=== PATIENT | female | born 1960 | race African-American/Black ===

== ENCOUNTER 2019-12-25 12:01 | Outpatient (REF) | payer OTHER, SELFPAY | END 2019-12-25 12:02 | disposition home or self-care (01) | LOC: HO.HMGCLDS 12:01 | PROVIDERS: Visit Provider Internal Medicine | DX: Z20.828 Contact with and (suspected) exposure to other viral communicable diseases (principal) | CPT/HCPCS: 87635 ==

== ENCOUNTER 2020-02-19 14:25 | Outpatient (REF) | payer OTHER, SELFPAY | END 2020-02-19 14:26 | disposition home or self-care (01) | LOC: HO.LAB 14:25 | PROVIDERS: Visit Provider Internal Medicine | DX: Z20.828 Contact with and (suspected) exposure to other viral communicable diseases (principal) | CPT/HCPCS: C9803; U0003 ==

== ENCOUNTER 2020-04-09 13:44 | Outpatient (REF) | payer MEDICAID, SELFPAY | END 2020-04-09 13:45 | disposition home or self-care (01) | LOC: HO.LAB 13:44 | PROVIDERS: Visit Provider Internal Medicine | DX: Z20.822 Contact with and (suspected) exposure to COVID-19 (principal) | CPT/HCPCS: 36415; C9803; U0003 ==

== ENCOUNTER 2021-10-05 12:28 | Inpatient (IN) | payer OTHER, MEDICAID, SELFPAY ==
--- NOTE | ~2021-10-05 | MR_ITS ---
MRI OF THE BRAIN WITHOUT IV CONTRAST INDICATION: History of TBI. Recent fall. Alcohol. COMPARISON: Head CT 10/08/2021. TECHNIQUE: Multiplanar multisequence MR imaging of the brain was obtained without IV contrast. FINDINGS: There is no hydrocephalus, extra-axial surface collection, or herniation. There is global cerebral volume loss and there is mild chronic microangiopathy. Chronic lacunar infarct within the right frontal centrum semiovale. The major flow voids at the skull base are preserved. There is no acute infarct on diffusion-weighted imaging. Punctate focus of chronic hemosiderin staining within the ventral right thalamus. The midline structures are normal. The cerebellar tonsils are normally positioned. The cerebellum and brainstem are normal. The craniocervical junction is normal. Osseous marrow signal intensity is homogenous. The visualized soft tissues are unremarkable. MR/MR head/brain wo con IMPRESSION: - No acute intracranial findings. No acute infarcts and no MRI evidence of acute intracranial hemorrhage. - There is global cerebral volume loss and there is mild chronic microangiopathy. Chronic lacunar infarct within the right frontal centrum semiovale. - Punctate focus of chronic hemosiderin staining within the ventral right thalamus.
--- NOTE | ~2021-10-05 | CT_ITS ---
EXAMINATION: CT HEAD WITHOUT CONTRAST CLINICAL INFORMATION: Memory loss. Alcohol abuse COMPARISON: None TECHNIQUE: Contiguous axial imaging was performed from the skull base to vertex without intravenous administration of contrast. This CT examination was performed using dose optimization techniques as appropriate, variously including the following: *Automated exposure control *Adjustment of mA and/or kV according to patient size (this includes techniques or standardized protocols for targeted exams where dose is matched to indication/reason for exam; i.e. extremities or head) *Use of iterative reconstruction technique DLP: 559 mGy-cm FINDINGS: There is no evidence of acute intracranial hemorrhage or territorial infarction. No abnormal mass effect or midline shift is seen. Marie to white matter differentiation is well preserved. No extra-axial fluid collections are identified. The lateral ventricles are symmetrical in size and configuration but enlarged. There is diffuse periventricular hypodensity without mass effect. The osseous structures and soft tissues are normal. The mastoid air cells and visualized portions of the paranasal sinuses are well aerated. CT/CT head/brain wo con IMPRESSION: No acute intracranial process seen.
--- NOTE | 2021-10-05 12:49 | PC.NURSE ---
Del CALLS TO SAY THIS PT HAS BEEN SEEN IN THE COMMUNITY, BED SEARCH IN PROGRESS
[2021-10-05 12:50] VITALS: BP 190/110; PULSE 92; O2SAT 100
[2021-10-05 13:41] VITALS: BP 135/79; PULSE 96; RESP 18; TEMP 36.6; O2SAT 98; BMI 24.0
--- NOTE | 2021-10-05 14:17 | ED_ITS ---
HPI - Psych General Chief Complaint: Psychiatric Symptoms Stated Complaint: SEC 12,SI/HI THREATS,ETOH INTOX PER EMS Time Seen by Provider: 10/05/21 13:10 Source: patient Mode of arrival: EMS Limitations: no limitations History of Present Illness HPI Narrative: Patient presents emergency department via EMS on a Section 12 from [facility] in the community. There was concern for suicidal ideations and homicidal ideations, and patient with access to guns/weapons, per family she is not at her baseline. Upon speaking with patient she states that she is ?fed up?. She reports that her significant other is using drugs, and he recently went to rehab, returned home about 2 weeks ago and said that he no longer wished to be with her after 5 years of their relationship. She states on multiple accounts ?I could kill him?. But relates no specific plan towards this. When asked whether she is having suicidal ideations she declines, stating that she has a grandchild who is due to be born in a few weeks. She does endorse that she has been drinking approximately 1 bottle of wine daily for the past 2 weeks. She denies any history of alcohol dependence, or withdrawal symptoms. She does report a history of seizures but not secondary to alcohol withdrawal. She denies fevers, chills, upper respiratory symptoms, dizziness, lightheadedness, chest pain, palpitations, shortness of breath, difficulty breathing, nausea, vomiting, abdominal pain, dysuria, generalized weakness, numbness or tingling of the extremities. Related Data Allergies Allergy/AdvReac Type Severity Reaction Status Date / Time lisinopril [LISINOPRIL] Allergy Severe ANGIOEDEMA, Unverified 12/06/19 18:35 cough Review of Systems Review of Systems: Constitutional : No Fever, No Chills ENT/Mouth : No Ear Pain, No Nasal Congestion, No sore throat Eyes: No Eye Pain, No Swelling, No Redness Cardiovascular : No Chest Pain, No SOB Respiratory : No Cough, No Sputum, No Dyspnea Gastrointestinal : No Nausea, No Vomiting, No Diarrhea, No Hematochezia, No Melena Genitourinary : No Dysuria, No Urinary Frequency, No Hematuria Musculoskeletal : No Myalgias Skin : No Skin Lesions, No rash Neuro : No Weakness, No Numbness, No Paresthesias, No Dizziness, No Headache Psych : positive Anxiety, positive Depression, positive SI/HI Heme/Lymph: No Lymphadenopathy Endocrine : No Polyuria, No Polydipsia Yes all other systems are reviewed and are negative [facility] Past Medical History Attestation statement: The following information was validated with the patient. Social History Social History Advance Directives: Yes Advance Directives Information Provided: Yes Advance Directives on File: No Physical Exam Vital Signs: Vital Signs: Last Vital Signs Temp 97.8 F 10/05/21 13:41 Pulse 96 10/05/21 13:41 Resp 18 10/05/21 13:41 BP 135/79 10/05/21 13:41 Pulse Ox 98 10/05/21 13:41 O2 Del Method 10/05/21 13:41 BMI result Body Mass Index 24.0 Vital signs have been reviewed as normal and appeared to be correct. Blood pressure normal.? Heart rate normal.? Respiration rate normal. Temperature normal.? Oxygen saturation normal. Appearance: Alert.?Oriented to person, place and time. No acute distress.?Normal affect. Eyes: Pupils equal, round and reactive to light.? ENT: Pharynx normal.?? Neck: Normal inspection.? Neck supple.?? CVS: Heart sounds normal. Normal heart rate and rhythm.? Pulses normal.?? Respiratory: No respiratory distress.? Lung sounds clear to auscultation bilaterally?? Abdomen: Soft and non-tender. Normoactive bowel sounds. Skin: Skin warm and dry.? Normal skin color.??? Extremities: No lower extremity edema.? Neuro: Moves all extremities spontaneously. Sensation intact bilaterally. CN II- XII intact. No focal neuro deficits. Ambulates with normal steady gait. Course Course Course Narrative: Patient is a 60-year-old female with a past medical history of seizures, hypertension presented to Emergency Department on a Section 12 from [facility] in [facility] for SI/HI with access to weapons. Will obtain basic labs including CBC, CMP in addition to urinalysis, ethanol level, ALEJANDRO for clearance. No physical complaints at this time. Will continue to monitor. Reevaluation(s) Reevaluation #1: Patient placed in physician observation as she will require additional time to be re-evaluated by the [facility], for disposition/bed search. Patient currently stable. Unremarkable labs. Will continue to monitor. Time: 16:00 [facility] - Psych Medical Records Attestation: I reviewed the patient's medical records. Lab Data Attestation: I reviewed the patient's lab results. Result diagrams: 10/05/21 14:24 10/05/21 14:23 Labs: Lab Results 10/05/21 10/05/21 10/05/21 Range/Units 14:23 14:23 14:24 WBC 5.7 (4.8-10.8) X10*3/uL RBC 3.86 L (4.20-5.50) X10*6/uL Hgb 13.8 (12.0-16.0) g/dl Hct 40.0 (37.0-47.0) % MCV 103.6 H (80.0-98.0) fL MCH 35.8 H (27.0-33.0) pg MCHC 34.5 (31.0-35.0) g/dl RDW 12.5 (11.0-16.0) % Plt Count 205 (160-400) X10*3/uL MPV 9.4 (9.4-12.3) fL Immature Gran % (Auto) 0.3 (0.0-0.4) % Neut % (Auto) 41.1 L (45-73) % Lymph % (Auto) 50.6 H (20-40) % Ida % (Auto) 7.2 (2-11) % Eos % (Auto) 0.5 (0-4) % Baso % (Auto) 0.3 (0-2) % Lymph # (Auto) 2.9 (1.2-4.9) X10*3/uL Ida # (Auto) 0.4 (0.1-1.2) X10*3/uL Eos # (Auto) 0.0 (0.0-0.4) X10*3/uL Baso # (Auto) 0.0 (0.0-0.2) X10*3/uL Abs Immat Gran (auto) 0.02 (0.00-0.03) X10*3/uL Absolute Neuts (auto) 2.4 (2.0-8.3) x10*3/uL Absolute Nucleated RBC 0.000 (0.0-0.012) X10*3/uL Nucleated RBC % (auto) 0.0 (0.0-0.2) /100WBC Sodium 147 H (135-145) mmol/L Potassium 3.9 (3.3-5.1) mmol/L Chloride 112 H (96-108) mmol/L Carbon Dioxide 22 (22-29) mmol/L Anion Gap 17 (12-20) BUN 8 L (9-16) mg/dL Creatinine 0.74 (0.5-1.4) mg/dL Estim Creat Clear Calc 70.6 Estimated GFR > 60 Random Glucose 82 (60-115) mg/dL Calcium 8.5 (8.4-10.2) mg/dL Magnesium 2.4 (1.6-2.6) mg/dL Total Bilirubin 0.2 (0.0-1.0) mg/dL AST 51 H (5-31) U/L ALT 25 (0-31) U/L Alkaline Phosphatase 112 (39-117) U/L Total Protein 7.8 (6.5-8.0) g/dL Albumin 4.4 (3.5-5.0) g/dL Ethyl Alcohol 279 mg/dL COVID-19 (ANGELINA) Negative (Negative) COVID-19 Clin Com See Note Discharge Plan Discharge Clinical Impression: Homicidal ideations Patient Disposition: Still a Patient
[2021-10-05 14:29] LABS: MANUAL DIFF FLAG NO
[2021-10-05 14:42] LABS: Basophils Percent Auto 0.3 % (0-2); Eosinophils Percent Auto 0.5 % (0-4); Hemoglobin 13.8 g/dl (12.0-16.0); Imm Gran Abs Auto 0.02 X10*3/uL (0.00-0.03); Imm Gran Pct Auto 0.3 % (0.0-0.4); Lymphocytes Absolute Auto 2.9 X10*3/uL (1.2-4.9); Lymphocytes Percent Auto 50.6 % (20-40); Mean Corpuscular HGB Conc 34.5 g/dl (31.0-35.0); Mean Corpuscular Hemoglobin 35.8 pg (27.0-33.0); Mean Corpuscular Volume 103.6 fL (80.0-98.0); Mean Platelet Volume 9.4 fL (9.4-12.3); Monocytes Absolute Auto 0.4 X10*3/uL (0.1-1.2); Monocytes Percent Auto 7.2 % (2-11); Neutrophils Absolute Auto 2.4 x10*3/uL (2.0-8.3); Neutrophils Percent Auto 41.1 % (45-73); Platelet Count 205 X10*3/uL (160-400); Red Blood Count 3.86 X10*6/uL (4.20-5.50); Red Cell Distribution Width 12.5 % (11.0-16.0); White Blood Count 5.7 X10*3/uL (4.8-10.8)
[2021-10-05 14:47] LABS: COVID-19 Test Negative (Negative)
[2021-10-05 14:49] LABS: Alanine Aminotransferase 25 U/L (0-31); Albumin Level 4.4 g/dL (3.5-5.0); Alkaline Phosphatase 112 U/L (39-117); Anion Gap 17 (12-20); Aspartate Amino Transferase 51 U/L (5-31); Bilirubin Total 0.2 mg/dL (0.0-1.0); Blood Urea Nitrogen 8 mg/dL (9-16); Calcium 8.5 mg/dL (8.4-10.2); Carbon Dioxide 22 mmol/L (22-29); Chloride 112 mmol/L (96-108); Creatinine Clr Calc Pharmacy 70.6; Estimated Glomerular Filt Rate > 60; Ethanol 279 mg/dL; Glucose Random 82 mg/dL (60-115); Magnesium 2.4 mg/dL (1.6-2.6); Potassium 3.9 mmol/L (3.3-5.1); Sodium 147 mmol/L (135-145); Total Protein 7.8 g/dL (6.5-8.0)
[2021-10-05 18:04] LABS: Appearance Urine CLEAR; Color Urine YELLOW; Glucose Urine UA NEG (NEG); Leukocyte Esterase Urine NEG (NEG); Nitrite Urine NEG (NEG); Specific Gravity - Urine 1.025 (1.005-1.025); Urine Blood NEG (NEG); Urine Ketones NEG (NEG); Urine Protein NEG (NEG-TRACE)
[2021-10-05 18:05] LABS: Amphetamine Screen Urine Not Detected (Not Detect); Barbiturates, Urine Not Detected (Not Detect); Benzodiazepines Screen Urine Not Detected (Not Detect); Cannabinoid Screen Urine POSITIVE (Not Detect); Cocaine Screen Urine Not Detected (Not Detect); Fentanyl, urine Not Detected (Not Detect); Opiate Screen Urine Not Detected (Not Detect); Phencyclidine Screen Urine Not Detected (Not Detect)
--- NOTE | 2021-10-05 19:12 | PHA.MEDREC ---
MED REC COMPLETE, NO ISSUES Pharmacy Consult ? Medication Reconciliation Pharmacy has completed the medication reconciliation.
[2021-10-05] MEDS: carvediloL 25 MG TABLET PO (22:45)
[2021-10-05] MEDS: Phenytoin Sodium Extended 100 MG CAPSULE PO (22:45)
--- NOTE | 2021-10-06 | ECG_ITS ---
Test Reason : MED CLEARENCE Blood Pressure : / mmHG Vent. Rate : 088 BPM Atrial Rate : 088 BPM P-R Int : 180 ms QRS Dur : 076 ms QT Int : 378 ms P-R-T Axes : 062 039 061 degrees QTc Int : 457 ms Normal sinus rhythm Normal ECG No previous ECGs available Referred By: Yon Abdul Electronically Signed By:Bharath Hirsch
[2021-10-06 02:26] VITALS: BP 156/67; PULSE 80; RESP 16; TEMP 36.4; O2SAT 98
[2021-10-06] MEDS: LORazepam 1 MG TABLET 2 MG PO ×2 (05:45→23:09)
--- NOTE | 2021-10-06 05:57 | PC.NURSE ---
CIWA 8 @ 0540, prn Ativan 2 mg PO at 0545, patient slept through the night, no distress observed/reported, disposition per [facility] is section 12 inpatient bed search, behavior non concerning, VSS, medication compliant, will continue to monitor.
--- NOTE | 2021-10-06 07:15 | PC.NURSE ---
patient appears to remain asleep at present respirations are even and unlabored patient appears in no distress
[2021-10-06 07:46] VITALS: BP 182/103; PULSE 83; RESP 16; TEMP 36.3; O2SAT 97
[2021-10-06] MEDS: dilTIAZem HCL CD 240 MG CAP.ER.DEG PO (08:26)
[2021-10-06] MEDS: Megestrol Acetate 400 MG/10 ML ORAL.SUSP 625 MG PO (08:26)
[2021-10-06] MEDS: Phenytoin Sodium Extended 100 MG CAPSULE PO (08:27)
[2021-10-06] MEDS: Losartan Potassium 50 MG TABLET 100 MG PO (08:27)
[2021-10-06] MEDS: hydroCHLOROthiazide 12.5 MG TABLET PO (08:27)
[2021-10-06] MEDS: Multivitamin TABLET 1 TAB PO (08:28)
[2021-10-06] MEDS: Cyanocobalamin (Vitamin B-12) 1,000 MCG TABLET 1000 MCG PO (08:28)
[2021-10-06] MEDS: carvediloL 25 MG TABLET PO ×2 (08:28→23:09)
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
[2021-10-06 15:33] VITALS: BP 176/89; PULSE 76; RESP 18; O2SAT 98
[2021-10-06] MEDS: Phenytoin Sodium Extended 100 MG CAPSULE 200 MG PO (23:09)
[2021-10-07 06:00] VITALS: BP 135/92; PULSE 114; TEMP 36.3; O2SAT 97
[2021-10-07 09:27] LABS: Estimated Average Glucose 97 mg/dL
[2021-10-07] MEDS: carvediloL 25 MG TABLET PO ×2 (09:27→20:39)
[2021-10-07] MEDS: Cyanocobalamin (Vitamin B-12) 1,000 MCG TABLET 1000 MCG PO (09:28)
[2021-10-07] MEDS: Phenytoin Sodium Extended 100 MG CAPSULE PO (09:28)
[2021-10-07] MEDS: dilTIAZem HCL CD 240 MG CAP.ER.DEG PO (09:28)
[2021-10-07] MEDS: Losartan Potassium 50 MG TABLET 100 MG PO (09:28)
[2021-10-07] MEDS: hydroCHLOROthiazide 12.5 MG TABLET PO (09:28)
[2021-10-07] MEDS: Multivitamin TABLET 1 TAB PO (09:29)
[2021-10-07] MEDS: Megestrol Acetate 400 MG/10 ML ORAL.SUSP 625 MG PO (09:29)
[2021-10-07 09:46] LABS: Cholesterol 231 mg/dL; HDL Cholesterol 69 mg/dL; LDL Cholesterol Calculated 118 mg/dl; Magnesium 2.2 mg/dL (1.6-2.6); Triglycerides 220 mg/dL
[2021-10-07] MEDS: Acetaminophen 325 MG TABLET 650 MG PO (10:07)
[2021-10-07 10:10] LABS: Free T4 (Free Thyroxine) 1.54 ng/dL (0.71-1.85); Thyroid Stimulating Hormone 0.65 uIU/mL (0.32-4.0)
[2021-10-07 10:40] LABS: Folate > 20.0 ng/mL (> or = 4.0); Vitamin B12 1150 pg/mL (200-900)
--- NOTE | 2021-10-07 11:58 | PC.NURSE ---
Pt signed a 3 day up on Tuesday, 10/12. , SW, UR aware.
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
[2021-10-07 19:05] VITALS: BP 122/74; PULSE 102; TEMP 36.3; O2SAT 100
[2021-10-07 20:38] VITALS: BP 128/86; PULSE 96
[2021-10-07] MEDS: Phenytoin Sodium Extended 100 MG CAPSULE 200 MG PO (20:39)
[2021-10-07] MEDS: traZODone HCL 50 MG TABLET PO (20:42)
[2021-10-08 07:00] VITALS: BMI 25.0
[2021-10-08 08:45] VITALS: BP 122/77; PULSE 112; TEMP 37.2
[2021-10-08 08:52] LABS: INTERNATIONAL NORM RATIO 1.1 (0.9-1.1); Prothrombin Time 12.1 SEC (10.0-13.1)
[2021-10-08 08:54] LABS: Ammonia 28 umol/L (13-55)
[2021-10-08 09:00] LABS: Phosphorus 3.6 mg/dL (2.7-4.5)
[2021-10-08] MEDS: Megestrol Acetate 400 MG/10 ML ORAL.SUSP 625 MG PO (09:02)
[2021-10-08] MEDS: hydroCHLOROthiazide 12.5 MG TABLET PO (09:03)
[2021-10-08] MEDS: Losartan Potassium 50 MG TABLET 100 MG PO (09:03)
[2021-10-08] MEDS: carvediloL 25 MG TABLET PO ×2 (09:03→21:57)
[2021-10-08] MEDS: Phenytoin Sodium Extended 100 MG CAPSULE PO (09:03)
[2021-10-08] MEDS: dilTIAZem HCL CD 240 MG CAP.ER.DEG PO (09:03)
[2021-10-08] MEDS: Multivitamin TABLET 1 TAB PO ×2 (09:04→09:10)
[2021-10-08] MEDS: Cyanocobalamin (Vitamin B-12) 1,000 MCG TABLET 1000 MCG PO (09:04)
[2021-10-08 09:05] LABS: Gamma Glutamyl Transpeptidase 251 U/L (7-33); Iron 113 mcg/dL (30-160); Percent Iron Saturation 31 % (15-50); Total Iron Binding Capacity 366 mcg/dL (228-428); Unsaturated Iron Binding 253 ug/dL
--- NOTE | 2021-10-08 09:18 | P.PNPSI_ITS ---
Subjective Subjective Date of Service: 10/08/21 Reason For Visit: SEC 12,SI/HI THREATS,ETOH INTOX PER EMS Subjective Notes: Conditional Voluntary and 3 Day Healthcare Proxy: No Guardianship: No Medical Problems Affecting Mental Status: No Interim History: Asking for discharge, I have learned my lesson. Family meeting with daughter and Adalberto Barlow TEAM COORDINATOR Pt open to continuing OP treatment (PHP/IOP) along with individual therapy, declines medications. Back surgery scheduled for Nov 2021. Discussed needing to find more opportunities for her to be involved in her community as this is a h ealing and motivating factor for her. States this experience was traumatic for her-identifies the POD in the ER as being like senior living , having no locks on the bathroom doors, having people behaving differently. 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 Looking forward to her daughter coming from [place] this week and attending her weekly [place] to promote the [employer] business. I have been scared straight . Review of diagnostic results which were available, plans for MRI 10/10 s/p fall. Medication Compliance: Yes Side effects from medications: No Attending Groups: Yes Review of Systems Acute medical concerns: No Medical Review of Systems: unchanged Review of Systems Psychiatric: Reports no additional psychiatric complaints Mental Status Exam Mental Status Exam Patient Appearance: Appropriate Patient Orientation: Person, Place, Time and Situation Level of Consciousness: Restless and Alert Patient Behavior: Appropriate, Talkative, Cooperative, Restless, Anxious and Good Eye Contact Mood Description: Anxious and Apprehensive Affect Description: Constricted Patient Cognition Impaired: No Ability to Follow Directions: Good Speech Pattern: Spontaneous Speech Memory Description: Remote Impaired and Episodic Impaired Hallucinations: None Delusions: Not Present Thought Process: Distracted and Goal Oriented Thought Content: positive for Circumstantial, positive for Logical, positive for Suicidal Ideation (denies) and positive for Homicidal Ideation (denies) Depressive Symptoms: Increased Anxiety and Changes in Appetite Abnormal Motor Activity Signs and Symptoms: Restlessness Judgement: Fair Diagnostics Vital Signs (24Hr): Vital Signs - 24 hr 10/07/21 19:05 10/07/21 20:38 Temperature 97.4 F Pulse Rate 102 H 96 Blood Pressure 122/74 128/86 Pulse Oximetry 100 Oxygen Delivery Method Room Air BMI result Body Mass Index 24.0 Labs Results: 10/05/21 14:24 10/05/21 14:23 Labs: Laboratory Results - last 48 hr 10/07/21 10/07/21 10/07/21 07:59 07:59 07:59 PT INR Estimat Average Glucose 97 Hemoglobin A1c % 5.0 Phosphorus Magnesium 2.2 Iron TIBC % Saturation Unsat Iron Binding GGT Ammonia Triglycerides 220 Cholesterol 231 LDL Cholesterol, Calc 118 HDL Cholesterol 69 Vitamin B12 1150 H Folate > 20.0 TSH 0.65 Free T4 1.54 10/08/21 10/08/21 10/08/21 08:26 08:26 08:26 PT 12.1 INR 1.1 Estimat Average Glucose Hemoglobin A1c % Phosphorus 3.6 Magnesium Iron 113 TIBC 366 % Saturation 31 Unsat Iron Binding 253 GGT 251 H Ammonia Triglycerides Cholesterol LDL Cholesterol, Calc HDL Cholesterol Vitamin B12 Folate TSH Free T4 10/08/21 08:26 PT INR Estimat Average Glucose Hemoglobin A1c % Phosphorus Magnesium Iron TIBC % Saturation Unsat Iron Binding GGT Ammonia 28 Triglycerides Cholesterol LDL Cholesterol, Calc HDL Cholesterol Vitamin B12 Folate TSH Free T4 Medications Medications Current Medications Acetaminophen (Acetaminophen 325 Mg Tablet) 650 mg PO Q6H PRN PRN Reason: Headache/Pain Mild Scale (1-3) Last Admin: 10/07/21 10:07 Dose: 650 mg Al Hydroxide/Mg Hydroxide (Magnesium Hydrox/Alum Hydrox 30 Ml Oral.Susp) 30 ml PO Q6H PRN PRN Reason: Heartburn/Nausea Albuterol Sulfate (Albuterol Sulfate 90 Mcg 8 Gm Inhaler) 2 puff INHALE Q6H PRN PRN Reason: Respiratory Distress Carvedilol (Carvedilol 25 Mg Tablet) 25 mg PO BID TEO; Protocol Last Admin: 10/08/21 09:03 Dose: 25 mg Cyanocobalamin (Cyanocobalamin (Vitamin B-12) 1,000 Mcg Tablet) 1,000 mcg PO DAILY TEO Last Admin: 10/08/21 09:04 Dose: 1,000 mcg Diltiazem HCl (Diltiazem Hcl Cd 240 Mg Cap.Er.Deg) 240 mg PO DAILY TEO; Protocol Last Admin: 10/08/21 09:03 Dose: 240 mg Hydrochlorothiazide (Hydrochlorothiazide 12.5 Mg Tablet) 12.5 mg PO DAILY TEO; Protocol Last Admin: 10/08/21 09:03 Dose: 12.5 mg Hydroxyzine HCl (Hydroxyzine Hcl 25 Mg Tablet) 25 mg PO Q6H PRN PRN Reason: Anxiety Lorazepam (Lorazepam 1 Mg Tablet) 2 mg PO RQ4H WHILE AWAKE PRN PRN Reason: Alcohol Withdrawal Last Admin: 10/06/21 23:09 Dose: 2 mg Losartan Potassium (Losartan Potassium 50 Mg Tablet) 100 mg PO DAILY [facility]; Protocol Last Admin: 10/08/21 09:03 Dose: 100 mg Magnesium Hydroxide (Milk Of Magnesia 30 Ml Oral.Susp) 30 ml PO DAILY PRN PRN Reason: Constipation Megestrol Acetate (Megestrol Acetate 400 Mg/10 Ml Oral.Susp) 625 mg PO DAILY [facility] Last Admin: 10/08/21 09:02 Dose: 625 mg Multivitamins/Vitamin C (Multivitamin Tablet) 1 tab PO DAILY [facility] Last Admin: 10/08/21 09:04 Dose: 1 tab Multivitamins/Vitamin C (Multivitamin Tablet) 1 tab PO DAILY [facility] Last Admin: 10/08/21 09:10 Dose: 1 tab Phenytoin Sodium (Phenytoin Sodium Extended 100 Mg Capsule) 100 mg PO DAILY [facility] Last Admin: 10/08/21 09:03 Dose: 100 mg Phenytoin Sodium (Phenytoin Sodium Extended 100 Mg Capsule) 200 mg PO BEDTIME [facility] Last Admin: 10/07/21 20:39 Dose: 200 mg Trazodone HCl (Trazodone Hcl 50 Mg Tablet) 50 mg PO BEDTIME PRN PRN Reason: Insomnia Last Admin: 10/07/21 20:42 Dose: 50 mg Allergies Allergies Allergy/AdvReac Type Severity Reaction Status Date / Time lisinopril [LISINOPRIL] Allergy Severe ANGIOEDEMA, Unverified 12/06/19 18:35 cough Assessment & Plan Assessment & Plan (1) Adjustment disorder with mixed disturbance of emotions and conduct: Status: Acute Code(s): F43.25 - Adjustment disorder with mixed disturbance of emotions and conduct (2) Alcohol use disorder, severe, dependence: Status: Acute Code(s): F10.20 - Alcohol dependence, uncomplicated (3) PTSD (post-traumatic stress disorder): Status: Acute Code(s): F43.10 - Post-traumatic stress disorder, unspecified (4) Homicidal ideations: Status: Acute Code(s): R45.850 - Homicidal ideations Assessment and Plan: Denies any plan or intent to harm ex-partner in any way. Reports this statement was made out of anger and frustration. Plan 60 yo female, seen by [facility], hx alcohol use disorder. Family called crisis/police as pt has been going through an ending of a relationship after 5 years together. Pt learned recently that ex-partner is severely addicted to crack-cocaine. He left rehab in June (early as he was scheduled to leave in September) and returned to using and left their home, telling pt recently she needed to move on with her life. She believes he has entered another relationship as well. As a result she became homicidal, asking for firearms with intent to shoot her ex-partner. She reported drinking more thant usual as well. Today, she met with Adalberto DUENAS and tw. States I just lost it. Reports struggling over the past few weeks after ex told her we are done, move on. Reports a hx of prior marriages- second was addicted to [id number] left him in 2008. Ex had been leaving for a few days at a time and recently had returned home, urine soaked and pt told him he could not remain. Reports an increase in alcohol consumption, [place] and family interviening to assist her in getting help. Pt signed a TDN today, asking about leaving-denies any HI or intent of physical harm to expartner-identifies being in the ER POD like being in senior living and was uncomfortable there-also reports a few cousins are in [facility] in [place] and encouraged her not to harm her partner. 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 Involved significantly with family-expecting a grandson in October 2021, planning back surgery in Nov 2021. I know I can move ahead. Plan: Pt has signed a three day notice. Asks to leave tonight as she is to receive an award. Discussed possibly by 10/09. Ammonia, MRI [facility], GGT, PT/INR, Iron Profile, Phos Continue current medications. Pt is not interested in psychotropic medications. Will give handouts on Naltrexone/Vivitrol for pt review. 10/08/21 Three day notice Discharge 10/09/21 to PHP/IOP I spent minutes with the patient and/or on the patient floor today, greater than?50% of which was spent counseling/coordinating care. Patient educated on: therapeutic strategies Informed Consent: understands Reason for contiued inpatient stay Substantial Risk for: stable for discharge
[2021-10-08 18:00] VITALS: BP 113/78; PULSE 88; TEMP 37.1; O2SAT 99
[2021-10-08] MEDS: Phenytoin Sodium Extended 100 MG CAPSULE 200 MG PO (21:57)
[2021-10-08] MEDS: traZODone HCL 50 MG TABLET PO (22:04)
[2021-10-08 22:27] VITALS: BP 111/88; PULSE 94; TEMP 36.1; O2SAT 98
[2021-10-09] MEDS: traZODone HCL 50 MG TABLET PO (00:37)
[2021-10-09 09:15] VITALS: BP 122/68; PULSE 94; TEMP 36.9
--- NOTE | 2021-10-09 09:19 | P.DS_ITS ---
DS: Providers Provider Date of Service: 10/09/21 Date of admission: 10/06/21 19:24 Date of discharge: 10/09/21 Primary care physician: Cris Arechiga MD Admitting clinician: Ashely Vargas Attending physician on admission: Carlton Gonzáles Attending physician on discharge: Carlton Gonzáles Discharging clinician: Ashely Vargas DS: Diagnosis Discharge Diagnosis (1) Adjustment disorder with mixed disturbance of emotions and conduct: Status: Acute (2) Alcohol use disorder, severe, dependence: Status: Acute (3) PTSD (post-traumatic stress disorder): Status: Acute (4) Homicidal ideations: Status: Resolved DS: Medications Discharge Medications Home Medications: Home Medications Medication Instructions Recorded Confirmed albuterol sulfate 90 mcg/actuation 2 puff inhalation Q6H PRN 10/05/21 10/05/21 aerosol inhaler (ProAir HFA) Respiratory Distress carvedilol 25 mg tablet 25 mg PO BID 10/05/21 10/05/21 cyanocobalamin (vitamin B-12) 1,000 mcg PO DAILY 10/05/21 10/05/21 1,000 mcg tablet diltiazem HCl 120 mg 2 cap PO DAILY 10/05/21 10/05/21 capsule,extended release 24 hr hydrochlorothiazide 12.5 mg capsule 12.5 mg PO DAILY 10/05/21 10/05/21 losartan 50 mg tablet 100 mg PO DAILY 10/05/21 10/05/21 megestrol 625 mg/5 mL (125 mg/mL) 5 ml PO DAILY 10/05/21 10/05/21 oral suspension multivitamin 1 tab PO DAILY 10/05/21 10/05/21 phenytoin sodium extended 100 mg 100 mg PO TID 10/05/21 10/05/21 capsule Mental Status Exam Mental Status Exam Patient Appearance: Appropriate Patient Orientation: Person, Place, Time and Situation Level of Consciousness: Restless and Alert Patient Behavior: Appropriate, Talkative, Cooperative, Restless, Anxious and Good Eye Contact Mood Description: Anxious and Apprehensive Affect Description: Constricted Patient Cognition Impaired: No Ability to Follow Directions: Good Speech Pattern: Spontaneous Speech Memory Description: Remote Impaired and Episodic Impaired Hallucinations: None Delusions: Not Present Thought Process: Distracted and Goal Oriented Thought Content: positive for Circumstantial, positive for Logical, positive for Suicidal Ideation (denies) and positive for Homicidal Ideation (denies) Depressive Symptoms: Increased Anxiety and Changes in Appetite Abnormal Motor Activity Signs and Symptoms: Restlessness Judgement: Fair Data Data Completed and Pending Completed studies during hospitalization [Text1]: 10/05/21 10/05/21 10/05/21 14:23 14:23 14:24 WBC 5.7 RBC 3.86 L Hgb 13.8 Hct 40.0 MCV 103.6 H MCH 35.8 H MCHC 34.5 RDW 12.5 Plt Count 205 MPV 9.4 Immature Gran % (Auto) 0.3 Neut % (Auto) 41.1 L Lymph % (Auto) 50.6 H Thayer % (Auto) 7.2 Eos % (Auto) 0.5 Baso % (Auto) 0.3 Lymph # (Auto) 2.9 Thayer # (Auto) 0.4 Eos # (Auto) 0.0 Baso # (Auto) 0.0 Abs Immat Gran (auto) 0.02 Absolute Neuts (auto) 2.4 Absolute Nucleated RBC 0.000 Nucleated RBC % (auto) 0.0 PT INR Sodium 147 H Potassium 3.9 Chloride 112 H Carbon Dioxide 22 Anion Gap 17 BUN 8 L Creatinine 0.74 Estim Creat Clear Calc 70.6 Estimated GFR > 60 Random Glucose 82 Estimat Average Glucose Hemoglobin A1c % Calcium 8.5 Phosphorus Magnesium 2.4 Iron TIBC % Saturation Unsat Iron Binding Total Bilirubin 0.2 GGT AST 51 H ALT 25 Alkaline Phosphatase 112 Ammonia Total Protein 7.8 Albumin 4.4 Triglycerides Cholesterol LDL Cholesterol, Calc HDL Cholesterol Vitamin B12 Folate TSH Free T4 Urine Color Urine Appearance Urine pH Ur Specific [place] Urine Protein Urine Glucose (UA) Urine Ketones Urine Blood Urine Nitrite Ur Leukocyte Esterase Urine Opiates Screen Urine Fentanyl Screen Ur Barbiturates Screen Ur Phencyclidine Scrn Ur Amphetamines Screen U Benzodiazepines Scrn Urine Cocaine Screen U Marijuana (THC) Screen Ethyl Alcohol 279 COVID-19 (ANGELINA) Negative COVID-19 Clin Com See Note 10/05/21 10/05/21 10/07/21 17:40 17:40 07:59 WBC RBC Hgb Hct MCV MCH MCHC RDW Plt Count MPV Immature Gran % (Auto) Neut % (Auto) Lymph % (Auto) Thayer % (Auto) Eos % (Auto) Baso % (Auto) Lymph # (Auto) Thayer # (Auto) Eos # (Auto) Baso # (Auto) Abs Immat Gran (auto) Absolute Neuts (auto) Absolute Nucleated RBC Nucleated RBC % (auto) PT INR Sodium Potassium Chloride Carbon Dioxide Anion Gap BUN Creatinine Estim Creat Clear Calc Estimated GFR Random Glucose Estimat Average Glucose 97 Hemoglobin A1c % 5.0 Calcium Phosphorus Magnesium Iron TIBC % Saturation Unsat Iron Binding Total Bilirubin GGT AST ALT Alkaline Phosphatase Ammonia Total Protein Albumin Triglycerides Cholesterol LDL Cholesterol, Calc HDL Cholesterol Vitamin B12 Folate TSH Free T4 Urine Color YELLOW Urine Appearance CLEAR Urine pH 6.0 Ur Specific [place] 1.025 Urine Protein NEG Urine Glucose (UA) NEG Urine Ketones NEG Urine Blood NEG Urine Nitrite NEG Ur Leukocyte Esterase NEG Urine Opiates Screen Not Detected Urine Fentanyl Screen Not Detected Ur Barbiturates Screen Not Detected Ur Phencyclidine Scrn Not Detected Ur Amphetamines Screen Not Detected U Benzodiazepines Scrn Not Detected Urine Cocaine Screen Not Detected U Marijuana (THC) Screen POSITIVE H Ethyl Alcohol COVID-19 (ANGELINA) COVID-19 [facility] 10/07/21 10/07/21 10/08/21 07:59 07:59 08:26 WBC RBC Hgb Hct MCV MCH MCHC RDW Plt Count MPV Immature Gran % (Auto) Neut % (Auto) Lymph % (Auto) Thayer % (Auto) Eos % (Auto) Baso % (Auto) Lymph # (Auto) Thayer # (Auto) Eos # (Auto) Baso # (Auto) Abs Immat Gran (auto) Absolute Neuts (auto) Absolute Nucleated RBC Nucleated RBC % (auto) PT INR Sodium Potassium Chloride Carbon Dioxide Anion Gap BUN Creatinine Estim Creat Clear Calc Estimated GFR Random Glucose Estimat Average Glucose Hemoglobin A1c % Calcium Phosphorus 3.6 Magnesium 2.2 Iron TIBC % Saturation Unsat Iron Binding Total Bilirubin GGT AST ALT Alkaline Phosphatase Ammonia Total Protein Albumin Triglycerides 220 Cholesterol 231 LDL Cholesterol, Calc 118 HDL Cholesterol 69 Vitamin B12 1150 H Folate > 20.0 TSH 0.65 Free T4 1.54 Urine Color Urine Appearance Urine pH Ur Specific [place] Urine Protein Urine Glucose (UA) Urine Ketones Urine Blood Urine Nitrite Ur Leukocyte Esterase Urine Opiates Screen Urine Fentanyl Screen Ur Barbiturates Screen Ur Phencyclidine Scrn Ur Amphetamines Screen U Benzodiazepines Scrn Urine Cocaine Screen U Marijuana (THC) Screen Ethyl Alcohol COVID-19 (ANGELINA) [employer] 10/08/21 10/08/21 10/08/21 08:26 08:26 08:26 WBC RBC Hgb Hct MCV MCH MCHC RDW Plt Count MPV Immature Gran % (Auto) Neut % (Auto) Lymph % (Auto) Thayer % (Auto) Eos % (Auto) Baso % (Auto) Lymph # (Auto) Thayer # (Auto) Eos # (Auto) Baso # (Auto) Abs Immat Gran (auto) Absolute Neuts (auto) Absolute Nucleated RBC Nucleated RBC % (auto) PT 12.1 INR 1.1 Sodium Potassium Chloride Carbon Dioxide Anion Gap BUN Creatinine Estim Creat Clear Calc Estimated GFR Random Glucose Estimat Average Glucose Hemoglobin A1c % Calcium Phosphorus Magnesium Iron 113 TIBC 366 % Saturation 31 Unsat Iron Binding 253 Total Bilirubin GGT 251 H AST ALT Alkaline Phosphatase Ammonia 28 Total Protein Albumin Triglycerides Cholesterol LDL Cholesterol, Calc HDL Cholesterol Vitamin B12 Folate TSH Free T4 Urine Color Urine Appearance Urine pH Ur Specific [place] Urine Protein Urine Glucose (UA) Urine Ketones Urine Blood Urine Nitrite Ur Leukocyte Esterase Urine Opiates Screen Urine Fentanyl Screen Ur Barbiturates Screen Ur Phencyclidine Scrn Ur Amphetamines Screen U Benzodiazepines Scrn Urine Cocaine Screen U Marijuana (THC) Screen Ethyl Alcohol COVID-19 (ANGELINA) COVID-19 Clin Com Imaging Diagnostic Imaging Impressions Head CT 10/08/21 11:47 IMPRESSION: No acute intracranial process seen. DS: Summary Hospital Course Hospital Course: Admission to adult psychiatry for exacerbation of PTSD with alcohol abuse due to a situational crisis, loss of a relationship. Pt refused all psychopharmacological interventions, participated in the milieu and asked to discharge to an out pt, IOP or PHP program. Corbinalessandra will see her for intake. Family is very involved. Children are a great support and pt is planning on assisting the family in a few weeks with the of a new grandchild. Pt will trial William and may call [facility] to discuss PHP at some point. She is well connected to her community and is beginning to process the loss of the relationship and move forward. Upon discharge, she was not suicidal, homicidal or psychotic. She understands that alcohol can exacerbate her symptoms and will avoid this moving forward. Time spent discussing smoking cessation with patient: 3 to 10 minutes Status at Discharge Functional status at discharge: independent ambulation Overall status at discharge: patient is progressing back to baseline Time Spent with Patient Time attestation: Total time spent providing and/or coordinating discharge services: 35 Time spent: Greater than 30 minutes Discharge Plan Discharge Patient Disposition: Home, Self-Care Discharge Diagnosis: Adjustment Reaction with Disturbance of Emotions and Conduct Alcohol Use Disorder, Severe, Dependence PTSD Referrals: [facility] [Other] - 10/13/21 1:30 pm (Referral for [facility] program [facility] will be contacting you by telephone for initial intake. Should you not hear from them you should follow-up with them at the provided phone number. ) [facility] [Other] - 1 Week (Patient will need to follow-up with outpatient therapist following discharge as therapist was unable to call back prior to discharge.) Cris Arechiga MD [Primary Care Provider] - 1 Week (DR. GOINS WILL CALL HER FOR THE F/U APPT.) Discharge Medications: Continued cyanocobalamin (vitamin B-12) 1,000 mcg Tablet 1,000 mcg PO DAILY carvedilol 25 mg Tablet 25 mg PO BID Rx Instructions: must administer with a meal/food diltiazem HCl 120 mg capsule,extended release 24hr 2 cap PO DAILY hydrochlorothiazide 12.5 mg Capsule 12.5 mg PO DAILY losartan 50 mg Tablet 100 mg PO DAILY megestrol 625 mg/5 mL (125 mg/mL) suspension 5 ml PO DAILY multivitamin Tablet 1 tab PO DAILY phenytoin sodium extended 100 mg Capsule 100 mg PO TID albuterol sulfate [ProAir HFA] 90 mcg/actuation Hfa Aerosol Inhaler 2 puff INHALATION Q6H PRN (Reason: Respiratory Distress) Discharge Orders: Discharge Order (Routine); Ordered 10/09/21 Ordered By: Ashely Vargas Diet: Advance to usual diet Activity on Discharge: As tolerated Stand Alone Forms: Patient Portal Discharge page, Community Support Care Plan Goals: Mood Stabilization Work on maintaining sobriety Health Concerns: Ajustment Disorder, Mixed Alcohol Use Disorder PTSD HTN Seizure Disorder Plan of Treatment: Attend follow up appointments You have declined psychotropic medication trial Consider attending identified Intensive Out Patient Program/Partial Hospital Program Crisis Team if Needed [phone] Call and or return as needed Assessment: non-suicidal non-psychotic Patient Instructions: Naltrexone (By mouth), Naltrexone (By injection) Discharge Date/Time: 10/09/21 15:17
[2021-10-09] MEDS: dilTIAZem HCL CD 240 MG CAP.ER.DEG PO (09:27)
[2021-10-09] MEDS: Multivitamin TABLET 1 TAB PO (09:27)
[2021-10-09] MEDS: Losartan Potassium 50 MG TABLET 100 MG PO (09:27)
[2021-10-09] MEDS: carvediloL 25 MG TABLET PO (09:27)
[2021-10-09] MEDS: Cyanocobalamin (Vitamin B-12) 1,000 MCG TABLET 1000 MCG PO (09:28)
[2021-10-09] MEDS: Megestrol Acetate 400 MG/10 ML ORAL.SUSP 625 MG PO (09:28)
[2021-10-09] MEDS: Phenytoin Sodium Extended 100 MG CAPSULE PO (09:28)
[2021-10-09] MEDS: hydroCHLOROthiazide 12.5 MG TABLET PO (09:28)
== END 2021-10-09 15:17 | disposition home or self-care (01) | DRG 755 ==
LOC: HO.ED 17:29 → HO.PM5 10-06 19:42
PROVIDERS: Nurse Practitioner Family; Admitting Provider Registered Nurse; Emergency Provider Emergency Medicine; PCP Internal Medicine; Visit Provider Clinical Nurse Specialist Psychiatric/Mental Health, Adult
DX: F43.25 Adjustment disorder with mixed disturbance of emotions and conduct (principal); R45.851 Suicidal ideations; R45.850 Homicidal ideations; F43.10 Post-traumatic stress disorder, unspecified; I10 Essential (primary) hypertension; F10.20 Alcohol dependence, uncomplicated; Z20.822 Contact with and (suspected) exposure to COVID-19; Z87.891 Personal history of nicotine dependence; Z88.8 Allergy status to other drugs, medicaments and biological substances; Z79.899 Other long term (current) drug therapy
CPT/HCPCS: 36415; 70450; 70551; 80053; 80061; 80307; 81003; 82077; 82140; 82607; 82746; 82977; 83036; 83540; 83735; 84100; 84439; 84443; 85025; 85610; 87635; 93005; 99285